=== PATIENT | female | born 1995 ===

== ENCOUNTER 2017-12-22 18:06 | Emergency (ER) | payer OTHER ==
[2017-12-22] MEDS ORDERED: ACETAMINOPHEN W/ CODEINE LIQ 5 ML CUP PO ONE (18:31)
[2017-12-22 18:32] VITALS: BP 115/76; PULSE 105; TEMP 99; BMI 31.4
--- NOTE | 2017-12-22 18:42 | PDOC ---
History of Present Illness <GinnaJett - Last Filed: 12/22/17 19:54> - History of Present Illness Initial Comments: 12/22/17 18:42 "Patient is a 22F with no significant PMHx, who presents to the ER complaining of nasal congestion, cough, body aches, and subjective fever for approximately 1 week. Denies nausea, vomiting, or diarrhea. Denies recent travel. Denies receiving flu shot. Admits to sick contact (). " <Riana Jordanan - Last Filed: 12/23/17 08:59> - General Chief Complaint: Respiratory Stated Complaint: COLD SYMPTOMS HEADACHE, EARACHE, SORE THROAT COUG Time Seen by Provider: 12/22/17 18:27 Past History <Jett Chacko - Last Filed: 12/22/17 19:54> - Past Medical History COPD: No Other medical history: DENIES - Immunization History Immunization Up to Date: No - Suicide/Smoking/Psychosocial Hx Smoking History: Never smoked Information on smoking cessation initiated: No Hx Alcohol Use: No Drug/Substance Use Hx: No Substance Use Type: None <NikkiBora - Last Filed: 12/23/17 08:59> - Past Medical History Allergies/Adverse Reactions: Allergies Allergy/AdvReac Type Severity Reaction Status Date / Time No Known Allergies Allergy Unverified 12/22/17 18:09 Home Medications: Ambulatory Orders Ibuprofen [Motrin -] 400 mg PO PRN 12/22/17 Review of Systems - Review of Systems Comments:: 12/22/17 18:42 "GENERAL/CONSTITUTIONAL: + fever no chills. No weakness. HEAD, EYES, EARS, NOSE AND THROAT: No change in vision. No ear pain or discharge. No sore throat. CARDIOVASCULAR: No chest pain or shortness of breath. RESPIRATORY: + cough, no wheezing, or hemoptysis. GASTROINTESTINAL: No nausea, vomiting, diarrhea or constipation. GENITOURINARY: No dysuria, frequency, or change in urination. MUSCULOSKELETAL: No joint or muscle swelling or pain. No neck or back pain. SKIN: No rash NEUROLOGIC: No headache, vertigo, loss of consciousness, or change in strength/ sensation. ENDOCRINE: No increased thirst. No abnormal weight change. HEMATOLOGIC/LYMPHATIC: No anemia, easy bleeding, or history of blood clots. ALLERGIC/IMMUNOLOGIC: No hives or skin allergy. " <Bora Jordan - Last Filed: 12/23/17 08:59> *Physical Exam - Vital Signs Last Vital Signs Temp Pulse Resp BP Pulse Ox 99 F 105 H 20 115/76 98 12/22/17 18:08 12/22/17 18:08 12/22/17 18:08 12/22/17 18:08 12/22/17 18:08 <Jett Chacko - Last Filed: 12/22/17 19:54> - Vital Signs Last Vital Signs Temp Pulse Resp BP Pulse Ox 99 F 105 H 20 115/76 98 12/22/17 18:08 12/22/17 18:08 12/22/17 18:08 12/22/17 18:08 12/22/17 18:08 - Physical Exam Comments: 12/22/17 18:42 "GENERAL: Awake, alert, and fully oriented, in no acute distress HEAD: No signs of trauma EYES: PERRLA, EOMI, sclera anicteric, conjunctiva clear ENT: Auricles normal inspection, hearing grossly normal, nares patent, oropharynx clear without exudates. Moist mucosa NECK: Nontender, no stepoffs, Normal ROM, supple, no lymphadenopathy, JVD, or masses LUNGS: Breath sounds equal, clear to auscultation bilaterally. No wheezes, and no crackles HEART: Regular rate and rhythm, normal S1 and S2, no murmurs, rubs or gallops ABDOMEN: Soft, nontender, normoactive bowel sounds. No guarding, no rebound. No masses EXTREMITIES: Normal range of motion, no edema. No clubbing or cyanosis. No cords, erythema, or tenderness NEUROLOGICAL: Cranial nerves II through XII intact. 5/5 strength and sensation in all extremities, Normal speech, normal gait SKIN: Warm, Dry, normal turgor, no rashes or lesions noted. " <Bora Jordan - Last Filed: 12/23/17 08:59> ED Treatment Course - ADDITIONAL ORDERS Additional order review: Laboratory Results 12/22/17 18:50 Urine HCG, Qual Negative - Medications Given in the ED: ED Medications Discontinued Medications Generic Name Dose Route Start Last Admin Trade Name Freq PRN Reason Stop Dose Admin Acetaminophen/Codeine Phosphate 5 ml 12/22/17 18:31 12/22/17 18:52 Tylenol W/Codeine Oral Solution - PO 12/22/17 18:32 5 ml ONCE ONE Administration <Jett Chacko - Last Filed: 12/22/17 19:54> - RADIOLOGY Radiology Studies Ordered: Category Date Time Status CHEST PA & LAT [RAD] Stat Radiology 12/22/17 18:31 Ordered <NikkiBora - Last Filed: 12/23/17 08:59> Medical Decision Making - Medical Decision Making 12/22/17 18:43 22 F with 1 week of fevers, cough, and malaise. Likely viral URI. However, given duration of symptoms, will r/o PNA. - CXR - Tylenol w/ codeine Pt signed out to oncoming attending at 7PM, pending CXR and re-evaluation. Case discussed in detail with oncoming Emergency Physician including history, physical exam and ancillary studies. Oncoming Emergency Physician has assumed care for the patient and will complete the evaluation and treatment. Patient is aware of the plan. <Riana Jordanan - Last Filed: 12/23/17 08:59> *DC/Admit/Observation/Transfer - Discharge Dispostion Admit: No <Jett Chacko - Last Filed: 12/22/17 19:54> <Bora Jordan - Last Filed: 12/23/17 08:59> Diagnosis at time of Disposition: Upper respiratory infection Qualifiers: URI type: unspecified viral URI Qualified Code(s): J06.9 - Acute upper respiratory infection, unspecified - Discharge Dispostion Disposition: HOME Condition at time of disposition: Stable - Patient Instructions Printed Discharge Instructions: DI for Viral Upper Respiratory Infection -- Adult
[2017-12-22] MEDS ORDERED: ACETAMINOPHEN W/ CODEINE LIQ 5 ML CUP ONE (18:51)
== END 2017-12-22 20:00 | disposition home or self-care (01) ==
LOC: FER 18:06
DX: J06.9 Acute upper respiratory infection, unspecified (principal)
CPT/HCPCS: 71046-TC; 84703; 99282-25